=== PATIENT | male | born 1980 | race Caucasian/White ===

== ENCOUNTER 2021-12-15 11:18 | Emergency (ER) | payer MEDICAID ==
[~2021-12-15] VITALS: Ht 165.1 cm; Wt 149.6 kg
[2021-12-15 11:55] LABS: BASOPHILS % 0.7 % (0.0-2.0); EOSINOPHILS % 0.9 % (0.0-5.0); HEMATOCRIT. 40.1 % (42.0-52.0); HEMOGLOBIN. 13.8 g/dL (14.0-18.0); LYMPHOCYTES % 25.9 % (20.0-50.0); MEAN CORPUSCULAR HEMOGLOBIN 23.9 pg (28.0-32.0); MEAN CORPUSCULAR VOLUME 69.8 fL (80.0-94.0); MEAN PLATELET VOLUME 7.6 fl (7.4-10.4); MONOCYTES % 6.4 % (2.0-8.0); NEUTROPHILS % 66.1 % (40.0-76.0); PLATELET 326 x1000/uL (130-400); RED BLOOD CELL COUNT 5.75 mill/uL (4.7-6.1)
[2021-12-15 12:00] LABS: CHLORIDE 106 mEq/L (98-107)
[2021-12-15 12:10] LABS: ETHANOL BLOOD < 10 mg/dL
[2021-12-15 12:26] LABS: PLATELET ESTIMATE NORMAL
[2021-12-15] MEDS ORDERED: METOCLOPRAMIDE HCL 10MG/2ML VIAL IV ONE (12:30)
[2021-12-15] MEDS ORDERED: KETOROLAC 30MG/ML VIAL IV ONE (12:30)
[2021-12-15] MEDS ORDERED: KETOROLAC 30MG/ML VIAL IV NR (13:00)
[2021-12-15] MEDS: METOCLOPRAMIDE HCL 10MG/2ML VIAL IV NR ×2 (13:12→13:14)
[2021-12-15 13:18] LABS: CLARITY URINE CLEAR (CLEAR); COLOR URINE YELLOW (YELLOW); KETONES URINE NEGATIVE (NEGATIVE); LEUKOCYTE ESTERASE URINE NEGATIVE (NEGATIVE); NITRITE URINE NEGATIVE (NEGATIVE); OCCULT BLOOD URINE NEGATIVE (NEGATIVE); PROTEIN URINE 1+ (NEGATIVE); SPECIFIC GRAVITY URINE 1.023 (1.005-1.030); UROBILINOGEN URINE 0.2 E.U./dL (0.2-1.0)
[2021-12-15 13:29] LABS: *AMPHETAMINES SCREEN URINE NEGATIVE (NEGATIVE); *BARBITURATES SCREEN URINE NEGATIVE (NEGATIVE); *BENZODIAZEPINES SCREEN URINE NEGATIVE (NEGATIVE); *COCAINE SCREEN URINE NEGATIVE (NEGATIVE); CANNABINOID URINE SCREEN NEGATIVE (NEGATIVE); METHADONE URINE SCREEN NEGATIVE (NEGATIVE); OPIATES URINE SCREEN NEGATIVE (NEGATIVE); PHENCYCLIDINE URINE SCREEN NEGATIVE (NEGATIVE)
[2021-12-15] MEDS ORDERED: TOPUD PO (13:37)
[2021-12-15 13:54] VITALS: BP 141/97
[2021-12-15] MEDS ORDERED: IOHEXOL-350 100 ML BOTTLE ONE (14:08)
== END 2021-12-15 14:11 | disposition home or self-care (01) ==
LOC: ER 11:37 → CANBEDREQ 14:00 → ER 14:11
DX: R51.9 Headache, unspecified (principal); R55 Syncope and collapse; R03.0 Elevated blood-pressure reading, without diagnosis of hypertension; R42 Dizziness and giddiness; R20.2 Paresthesia of skin; R20.0 Anesthesia of skin; R53.1 Weakness
CPT/HCPCS: 36415; 70450; 70496; 70498; 71045; 80053; 80305; 80320; 81003; 82962; 85025; 93005; 96374; 96375; 99285; J1885; J2765; Q9967; G0480